=== PATIENT | female | born 2000 | race Hispanic/Latino ===

== ENCOUNTER 2022-05-16 10:50 | Emergency (ER) | payer OTHER ==
[~2022-05-16] VITALS: Ht 160 cm; Wt 79.4 kg
== END 2022-05-16 16:54 | disposition home or self-care (01) ==
LOC: ED 10:50
DX: R19.7 Diarrhea, unspecified (principal); N92.0 Excessive and frequent menstruation with regular cycle; Z20.822 Contact with and (suspected) exposure to COVID-19
CPT/HCPCS: 87502; A9270; U0003

== ENCOUNTER 2023-04-21 15:57 | Emergency (ER) | payer OTHER ==
[~2023-04-21] VITALS: Ht 160 cm; Wt 73.1 kg
--- OUTSIDE RECORDS SUMMARY | ~2023-04-21 | XMS | Continuity of Care Document ---
Demographics + + + | Address | [address] | | | [place] [address] | + + + | Preferred Language | Unknown | + + + | Marital Status | Unknown | + + + | Buddhism Affiliation | Unknown | + + + | Race | Unknown | + + + | Ethnic Group | Not or | + + + Author + + + | Author | [facility] | + + + | Organization | [facility] | + + + | Address | [address] | | | [place] [address] | + + + | Phone | | + + + Care Team Providers + + + + | Care Lead Mechanical Engineer Name | Role | Phone | + + + + Unavailable | Unavailable | + + + + Unavailable | Unavailable | + + + + Allergies No information. Encounters No information. Functional Status No information. Immunizations No information. Medications + + + + | date | description | facility | + + + + | 2023-02-18 00:00 | amoxicillin 875 MG / | [facility] | | | clavulanate 125 MG Oral | | | | Tablet | | + + + + | 2023-02-18 00:00 | Amoxicillin-Pot | [facility] | | | Clavulanate 875-125 MG Oral | | | | Tablet | | + + + + Problems No information. Procedures + + + + | date | description | facility | + + + + | 2023-02-04 00:00 | Controlling Blood | [facility] | | | Pressure; Most recent | | | | Systolic <130mm Hg | | + + + + | 2023-02-18 00:00 | Controlling Blood | [facility] | | | Pressure; Most recent | | | | Systolic <130mm Hg | | + + + + | 2023-02-04 00:00 | Controlling BP; Most | [facility] | | | recent Diastolic BP < 80mm | | | | Hg | | + + + + | 2023-02-18 00:00 | Controlling BP; Most | [facility] | | | recent Diastolic BP < 80mm | | | | Hg | | + + + + Results/Labs No information. Social History + + + + | date | description | facility | + + + + | 2023-02-05 00:00 | Unknown if ever smoked | [facility] | | | | | + + + + | 2023-02-19 00:00 | Unknown if ever smoked | [facility] | | | | | + + + + | 2023-02-20 00:00 | Unknown if ever smoked | [facility] | | | | | + + + + Vital Signs + + + + + | date | measurement | value | units | + + + + + | 2023-02-04 00:00 | BMI | 28.9 | 1 | + + + + + | 2023-02-04 00:00 | BP_diastolic | 62 | mmHg | + + + + + | 2023-02-04 00:00 | BP_systolic | 102 | mmHg | + + + + + | 2023-02-04 00:00 | BSA | 1.8 | 1 | + + + + + | 2023-02-04 00:00 | heart_rate | 1|1| | completed | + + + + + | 2023-02-04 00:00 | heart_rate | 60 | /min | + + + + + | 2023-02-04 00:00 | height_metric | 160.02 | cm | + + + + + | 2023-02-04 00:00 | height_standard | 63 | in | + + + + + | 2023-02-04 00:00 | o2_saturation | 100 | % | + + + + + | 2023-02-04 00:00 | temperature_metric | 36.39 | C | | | | | | + + + + + | 2023-02-04 00:00 | | 97.5 | F | | | temperature_standar | | | | | d | | | + + + + + | 2023-02-04 00:00 | weight_metric | 73.94 | kg | + + + + + | 2023-02-04 00:00 | weight_standard | 163 | lb | + + + + + | 2023-02-18 00:00 | BP_diastolic | 64 | mmHg | + + + + + | 2023-02-18 00:00 | BP_systolic | 110 | mmHg | + + + + + | 2023-02-18 00:00 | heart_rate | 1|1| | completed | + + + + + | 2023-02-18 00:00 | heart_rate | 74 | /min | + + + + + | 2023-02-18 00:00 | o2_saturation | 100 | % | + + + + + | 2023-02-18 00:00 | temperature_metric | 36.78 | C | | | | | | + + + + + | 2023-02-18 00:00 | | 98.2 | F | | | temperature_standar | | | | | d | | | + + + + + | 2023-02-18 00:00 | weight_metric | 70.76 | kg | + + + + + | 2023-02-18 00:00 | weight_standard | 156 | lb | + + + + + | 2023-02-20 00:00 | BMI | 27.8 | 1 | + + + + + | 2023-02-20 00:00 | BP_diastolic | 72 | mmHg | + + + + + | 2023-02-20 00:00 | BP_systolic | 102 | mmHg | + + + + + | 2023-02-20 00:00 | BSA | 1.7 | 1 | + + + + + | 2023-02-20 00:00 | heart_rate | 1|1| | completed | + + + + + | 2023-02-20 00:00 | heart_rate | 63 | /min | + + + + + | 2023-02-20 00:00 | height_metric | 160.02 | cm | + + + + + | 2023-02-20 00:00 | height_standard | 63 | in | + + + + + | 2023-02-20 00:00 | o2_saturation | 96 | % | + + + + + | 2023-02-20 00:00 | temperature_metric | 36.22 | C | | | | | | + + + + + | 2023-02-20 00:00 | | 97.2 | F | | | temperature_standar | | | | | d | | | + + + + + | 2023-02-20 00:00 | weight_metric | 71.21 | kg | + + + + + | 2023-02-20 00:00 | weight_standard | 157 | lb | + + + + +"
[2023-04-21 17:48] LABS: BILIRUBIN, URINE NEGATIVE (negative); BLOOD/HGB, URINE LARGE (Negative); KETONE, URINE TRACE (Negative); LEUK ESTERASE, URINE TRACE (negative); NITRITE, URINE NEGATIVE (negative); PH, URINE 6.5 (5-7)
[2023-04-21 18:02] LABS: EPITHELIAL CELLS, URINE SQUAMOUS 1+ /lpf (0-1+); WHITE BLOOD CELLS, URINE 21-40 /HPF (0-5)
[2023-04-21 18:03] LABS: BACTERIA, URINE RARE /hpf (negative); CASTS, URINE NONE SEEN \\lpf; CRYSTALS, URINE NONE SEEN (0-1+); REFLEX CULTURE, URINE Yes (No)
[2023-04-21] MEDS ORDERED: CEFDINIR300 MG PO (18:47)
[2023-04-21 19:26] VITALS: BP 104/62
== END 2023-04-21 19:26 | disposition home or self-care (01) ==
LOC: ED 15:57
PROVIDERS: Emergency Medicine
DX: N12 Tubulo-interstitial nephritis, not specified as acute or chronic (principal)
CPT/HCPCS: 81001; 84703; 87088; 99283

== ENCOUNTER 2025-05-09 16:29 | Emergency (ER) | payer OTHER ==
[~2025-05-09] VITALS: Ht 160 cm; Wt 72.0 kg
--- NOTE | ~2025-05-09 | EKG ---
[facility] [address] [place], [place] [address] Draft EK completed, results pending confirmation PATIENT NAME: PHUONG WARNERSOL Electrocardiogram DATE OF : [birth year] PHYSICIAN: PRELIMINARY REPORT #: [id number] REPORT IS CONFIDENTIAL AND NOT TO BE RELEASED WITHOUT AUTHORIZATION
[~2025-05-09 16:29] MED LIST: CEFDINIR300 MG PO
[2025-05-09] MEDS ORDERED: LORazepam 2 MG/ML VIAL IV PRN (16:45)
[2025-05-09 16:47] LABS: BASOPHILS 0.7 % (0.1-1.2); EOSINOPHILS 0.4 % (0.7-5.8); LYMPHOCYTES 42.0 % (19.3-51.7); MCH 29.5 PG (25.6-32.2); MCHC 33.4 g/dL (32.2-35.5); MCV 88.2 fL (79.4-94.8); MONOCYTES 9.6 % (4.7-12.5); NEUTROPHILS 47.2 % (34.0-71.1); RBC 4.51 M/uL (3.93-5.22)
[2025-05-09 17:03] LABS: ALT (SGPT) 74.0 U/L (14-59); AST (SGOT) 253.0 U/L (15-37); GLOMERULAR FILTRATION RATE,EST 103.0 mL/min (>60); PROTEIN, TOTAL 8.2 g/dL (6.4-8.2); UREA NITROGEN 7.0 mg/dL (7-18)
[2025-05-09] MEDS ORDERED: KETOROLAC TROMETHAMINE 30 MG/ML VIAL IV ONE (17:15)
[2025-05-09 18:29] VITALS: BP 101/58
--- NOTE | 2025-05-09 20:37 | EKG ---
[facility] [address] [place] [address] Signed Normal sinus rhythm Incomplete right bundle branch block Left anterior fascicular block Abnormal ECG Confirmed by Armand Albrecht MD () on 05/09/2025 8:37:02 PM Electronically Signed By: ARMAND ALBRECHT MD 05/09/[id number] PATIENT NAME: IBETH WARNER Electrocardiogram DATE OF : [birth year] PHYSICIAN: ARMAND ALBRECHT MD REPORT #: [id number] REPORT IS CONFIDENTIAL AND NOT TO BE RELEASED WITHOUT AUTHORIZATION
== END 2025-05-09 18:31 | disposition home or self-care (01) ==
LOC: ED 16:29
PROVIDERS: Emergency Medicine
DX: R07.89 Other chest pain (principal); R06.4 Hyperventilation
CPT/HCPCS: 36415; 71045; 80053; 84703; 85025; 93005; 93010; 96374; 96375; 96376; 99285-25; J1885; J2060